=== PATIENT | male | born 2005 | race Caucasian/White ===

== ENCOUNTER 2024-07-22 20:08 | Emergency (ER) | payer OTHER, SELFPAY ==
[2024-07-22 20:10] VITALS: BP 167/80; PULSE 112; RESP 16; TEMP 36.6; O2SAT 99
--- OUTSIDE RECORDS SUMMARY | 2024-07-22 20:10 | XMS_ITS | Referral Summary ---
Author Organization [facility] [address] Address [address] [place] [id number] Care Team Providers Care Diesel Pile Hammer Operator Name Role Phone Yesi Elise NP Primary Care Provider [phone] Allergies No known active allergies Medications naproxen (NAPROSYN) 500 mg tablet Take 1 tablet (500 mg total) by mouth 2 (two) times a day as needed for pain (pain) 60 tablet 4 Active NOT IN DATABASE, PRESCRIPTION, Compounded Fissure Cream: Lidocaine 2% cream mixed with 0.4% Nitroglycerin- Applied as 1 inch to rectum daily for 4 weeks. 1 each 1 4 Active Additional Information Patient not taking.Reported on 12/05/2023 Active Problems Problem Noted Date Diagnosed Date Chronic adenotonsillitis 08/09/2023 Assessment & Plan (12/05/2023 4:18 PM CDT): New referral placed to ENT, he needs sleep study so he can get tonsils/adenoids removed per insurance. Assessment & Plan (08/09/2023 10:38 AM CDT): Plan tonsillectomy and adenoidectomy. - Discussed risks, benefits, and alternatives. Reviewed risks, including anesthesia, pain, bleeding, injury to lips, teeth, gums and tongue, dehydration, scarring, velopharyngeal insufficiency, voice changes, regrowth of tissue. - Reviewed postoperative care: 1-2 weeks off school/daycare, and 2 weeks of light activity and soft diet, with emphasis on fluid hydration, red or purple coloring, straws and dairy are fine to drink. - informational paperwork, including description of surgery, risks, and postop care provided All questions were answered and they would like to proceed. Adenotonsillar hypertrophy 08/09/2023 Assessment & Plan (12/05/2023 4:18 PM CDT): New referral placed to ENT, he needs sleep study so he can get tonsils/adenoids removed per insurance. Assessment & Plan (08/09/2023 10:38 AM CDT): Plan tonsillectomy and adenoidectomy. - Discussed risks, benefits, and alternatives. Reviewed risks, including anesthesia, pain, bleeding, injury to lips, teeth, gums and tongue, dehydration, scarring, velopharyngeal insufficiency, voice changes, regrowth of tissue. - Reviewed postoperative care: 1-2 weeks off school/daycare, and 2 weeks of light activity and soft diet, with emphasis on fluid hydration, red or purple coloring, straws and dairy are fine to drink. - informational paperwork, including description of surgery, risks, and postop care provided All questions were answered and they would like to proceed. Blood in stool 07/18/2023 Rectal pain 07/18/2023 Traumatic injury of rectum 07/18/2023 Irregular bowel habits 07/18/2023 Post concussion syndrome 11/02/2022 Assessment & Plan (12/05/2023 4:16 PM CDT): Discussed Neurology, new referral placed again. May be contributing to worsening mood. Assessment & Plan (06/10/2023 2:58 PM UNARMED SECURITY GUARD): Continue with Neurology appointment in July, new referral placed as requested. 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 Denies SI or HI. Patient has tried Sertraline and Lexapro in the past with adverse side effects. He opts not to try medication until he sees Psychiatrist (new referral placed). Does continue with his therapist. Assessment & Plan (11/02/2022 2:34 PM CDT): Taper sertraline down 1/2 tab for a week, then stop (use pill-cutter) Start Lexapro midweek, we might bump it up to 10 mg after 2 weeks if not having effect We will monitor for improvement or worsening Encounter for medical examination to establish c are 08/31/2022 Assessment & Plan (08/31/2022 5:55 PM CDT): A(n) initial well visit to establish care has been performed today. Aguilar Tucker is up to date on screening tests. He is in need of Cholesterol screening. He is up to date on needed preventative vaccinations. We discussed healthy lifestyle habits, educational material has been given. Medications reviewed, changes documented as per the medical record and discussed with patient along with risks vs benefits. Awaiting labs MRI ordered Planning on referral to neuro with concussion syndrome focus Stay on current step for concussion protocol for now May use tylenol PRN for now (tylenol extra-strength is fine) Return in 1 month Immunizations Immunization Administration Dates Next Due DTaP / Hep B / IPV 04/03/2004,02/01/2004, 004 DTaP 5 Pertussis 10/10/2007,03/30/2005 H1N1 Nasal 02/18/2012, 1,03/16/2009,02/16,12/09/2008,02/11/2008 HPV, Quadrivalent 10/12/2019 HPV9 06/29/2019 Hep A, Pediatric 04/17/2006,10/04/2005 Hib (PRP-T) 10/04/2005,02/01/2004,2003 IPV 10/10/2007 Influenza, Quadrivalent, Spl it, Preservative Free, Intramuscular 02/02/2020 Influenza, Trivalent, IM (MDV) 9,02/14/2015,01/25/2014,01/28,05/18/2010,02/18/2007,04/17/2006 ,03/30/2005,05/09/2004,04/03/2004 Influenza, Unspecified 06/10/2023(Deferr ed: Patient Refused),04/15/2022(Deferred: Patient Refused),04/15/2022(Deferred: Patient Refused),04/15/2022(Deferred: Patient Refused),04/15/2021(Deferred: Patient Refused) MMR 10/10/2007,03/30/2005 Meningococcal B, unspecified 10/12/2019,10/15/19 15 Meningococcal MCV4P (Menactra) 10/12/2019,2014 Pneumococcal Conjugate 7-Valent 10/05/19,04/03/2004,02/01/2004,12/01 Tdap 10/14/2014 Varicella 10/10/2007,10/04/2004 Social History Tobacco Use Types Packs/Day Years Used Date Smoking Tobacco: Former Cigarettes 1 1.2 S tarted: 05/27/2023 Vaping Passive Smoke Exposure: Past Smokeless Tobacco: Never Tobacco Cessation:Counseling Given: Not Answered AUDIT-C Answer Date Recorded Q1: How often do you have a drink containing alcohol? Never 09/05/2023 Q2: How many drinks containi ng alcohol do you have on a typical day when you are drinking? Patient does not drink Frequency of Binge Drinking Not on file 08/14 PHQ-2 Answer Date Recorded PHQ-2 Total Score (If total score is 3 or more points, staff should administer the PHQ-9) 6 12/05/2023 PHQ-9 Answer Date Recorded PHQ-9 Total Score 22 12/05/2023 Personal Safety Answer Date Recorded Have you ever been in or are you currently in a harmful physical or emotional relationship or is someone making you feel afraid or unsafe? Denies 08/22/2023 Sex and Gender Information Value Date Recorded Sex Assigned at Not on file Legal Sex Male 10:31 AM CDT Gender Identity Male 08/30/2022 9:12 AM CDT Sexual Orientation Not on file Last Filed Vital Signs Vital Sign Reading Time Taken Comments Blood Pressure 120/65 12/24/2023 4:21 PM CDT Pulse 80 12/24/2023 4:21 PM CDT Temperature 36.8 C (98.3 F) 12/24/2023 4:21 PM CDT Respiratory Rate 20 12/24/2023 4:21 PM CDT Oxygen Saturation 99% 12/24/2023 4:21 PM CDT Inhaled Oxygen Concentration - - Weight 81.2 kg (179 lb) 12/24/2023 4:21 PM CDT Height 180.3 cm (5' 11 ) 12/24/2023 4:21 PM CDT Body Mass Index 24.97 12/24/2023 4:21 PM CDT Plan of Treatment Not on file Insurance [facility] CLAIMS [facility] CLAIMS [address] [id number] Advance Directives For more information, please contact: [phone] * Full Code (Latest Code Status on File) Date Activated Date Inactivated Comments 08/22/2023 8:42 AM 08/22/2023 2:42 PM * Full Code Date Activated Date Inactivated Comments 08/22/2023 8:42 AM 08/22/2023 8:42 AM Care Teams Diesel Pile Hammer Operator Relationship Specialty Start Date End Date Yesi Elise NP [address] [address] PCP - General Family Medicine 06/10/23
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
--- OUTSIDE RECORDS SUMMARY | 2024-07-22 20:10 | XMS_ITS | Clinical Summary ---
Author Organization [facility] Address [address] [place] [address] Care Team Providers Care Non Licensed Operator Name Role Phone Unavailable Primary Care Provider Unavailabl e Source Comments [facility] [employer],non-owned Affiliates and Associated Physician Practices is amultiple site organization consisting of ambulatory clinics and hospital sitesin [place], [place], [place] and [place]. This disclosure is being madepursuant to the Care Everywhere program and may not contain all information available regarding this patient. Last updated 18.[facility] [employer] Social History Tobacco Use Types Packs/Day Years Used Date Smoking Tobacco: Never Assessed Sex and Gender Information Value Date Recorded Sex Assigned at Not on file Gender Identity Not on file Sexual Orientation Not on file Plan of Treatment Health Maintenance Due Date Last Done Comments HIV SCREENING 09/30/2018 HPV VACCINE (1 - Male 3-dose series) 09/30/2018 MENINGOCOCCAL (Group B) VACC INE SHARED DECISION-MAKING (1 of 2 - Standard) 2019 HEPATITIS C SCREENING 09/26/2021 DTAP/TDAP/TD VACCINES (1 - Tdap) 09/30/2022 HEPATITIS B VACCINE (1 of 3 - 19+ 3-dose series) 09/30/2022 COVID-19 VACCINE (1 - 2023-2 5 season) 2023 DEPRESSION SCREENING 04/15/2024 INFLUENZA VACCINE (Season Ended) 2024 ZOSTER VACCINE (1 of 2) 09/30/2053 HIB VACCINE Aged Out No longer eligi ble based on patient's age to complete this topic MENINGOCOCCAL GROUPS A/C/Y/W VACCINE Aged Out No longer eligible b ased on patient's age to complete this topic PNEUMOCOCCAL VACCINE Aged Out No long er eligible based on patient's age to complete this topic
[2024-07-22 20:46] VITALS: BP 147/84; PULSE 111; RESP 15; O2SAT 97; O2SAT 99
[2024-07-22 20:48] VITALS: PULSE 102
--- NOTE | 2024-07-22 20:49 | ECG_ITS ---
Test Date: 2024-07-22 23:49:40 Measurements Intervals [place] Rate: 87 P: 34 MO: 135 QRS: 83 QRSD: 97 T: 43 QT: 352 QTc: 424 Interpretive Statements SINUS RHYTHM NORMAL ECG No previous ECG available for comparison Electronically Signed On 07-23-2024 05:32:44 CDT by Jackson Borges D.O.
[2024-07-22 21:11] LABS: Basophils Absolute Auto 0.1 K/mm3 (0.0-0.1); Basophils Percent Auto 0.4 % (0.2-1.2); Eosinophils Percent Auto 0.1 % (0-4.4); Hemoglobin 15.8 g/dL (14.0-18.0); Immature Granulocyte Absolute 0.06 K/mm3 (0.00-0.031); Immature Granulocyte Percent A 0.5 % (0-0.5); Lymphocytes Absolute Auto 0.61 K/mm3 (0.9-3.2); Lymphocytes Percent Auto 5.2 % (18.3-44.2); Mean Corpuscular HGB Conc 32.9 g/dl (32-36); Mean Corpuscular Hemoglobin 27.9 pg (26-34); Mean Corpuscular Volume 84.7 fl (80-100); Mean Platelet Volume 9.6 fl (7.4-10.4); Monocytes Absolute Auto 0.4 K/mm3 (0.1-0.6); Monocytes Percent Auto 3.3 % (2.6-8.5); Neutrophils Absolute Auto 10.7 K/mm3 (1.3-6.7); Neutrophils Percent Auto 90.5 % (45.5-73.1); Platelet Count Result 283 k/mm3 (150-375); Red Blood Count 5.67 M/mm3 (4.6-6.20); White Blood Count 11.8 K/mm3 (4.5-10.0)
--- NOTE | 2024-07-22 21:19 | ED.GENADULT ---
HPI - General Adult General Chief complaint: Altered Mental Status Stated complaint: drug use Time Seen by Provider: 07/22/24 20:49 History of Present Illness HPI narrative: Patient is a 18-year-old gentleman who presents emergency department with chief complaint of altered mental status. Patient states that he has been depressed and reports that today he took some mushroom T the patient states he used more mushrooms that he has used in the past and reports that he had an out of body experience the patient states he still feels strange at this time the patient denies suicidal or homicidal ideation Related Data Home Medications ?Medication ?Instructions ?Recorded ?Confirmed ?Last Taken ?Type ibuprofen 200 mg tablet 200 mg PO Q6H PRN 07/26/20 08/09/20 Unknown History Allergies Allergy/AdvReac Type Severity Reaction Status Date / Time No Known Allergies Allergy Verified 07/22/24 20:10 Review of Systems Review of Systems: A 10 system review of systems was completed on the patient and is negative except for what is stated in the HPI. Nursing and ancillary documentation was reviewed. [facility] Past Medical History Medical History Moderate right ankle sprain Social History Social History Alcohol intake: never Substance use: unknown Living arrangements: with family Occupation/Education: student Gender identity (if verbalized by the patient): Male Exam Narrative: GENERAL: Well-appearing, well-nourished, and in no acute distress. HEAD: Normocephalic, atraumatic. EYES: PERRLA and EOMI. ENT: Nares clear, no rhinorrhea or epistaxis. Mucous membranes moist. NECK: Supple. CHEST: Clear to auscultation. No respiratory distress. HEART: Regular rate and rhythm. No murmur heard. Normal peripheral pulses. ABDOMEN: Soft, nontender, nondistended, normal active bowel sounds. EXTREMITIES: Normal range of motion. No edema. SKIN: Warm, dry, no rash. NEURO: No focal deficits. Alert and oriented x3. PSYCH: Normal mood and affect. Course Vital Signs Vital signs: Vital Signs Temperature 36.6 C 07/22/24 20:10 Pulse Rate 112 H 07/22/24 20:10 Respiratory Rate 16 07/22/24 20:10 Blood Pressure 167/80 H 07/22/24 20:10 Pulse Oximetry 99 07/22/24 20:10 Oxygen Delivery Room Air 07/22/24 20:10 Temperature 36.6 C 07/22/24 20:10 Pulse Rate 102 H 07/22/24 20:48 Respiratory Rate 15 07/22/24 20:46 Blood Pressure 147/84 H 07/22/24 20:46 Pulse Oximetry 99 07/22/24 20:46 Oxygen Delivery Room Air 07/22/24 20:46 Medical Decision Making MDM Narrative Medical decision making narrative: Patient is medically cleared for psychiatric evaluation referral transferred admission Differential diagnosis includes depression, substance induced mood disorder, drug abuse The patient is currently not suicidal or homicidal After medical clearance patient case was discussed with mental health screen years who given the patient is not suicidal or homicidal recommended outpatient resources for follow-up Vital Signs Vital Signs: Vital Signs Temperature 36.6 C 07/22/24 20:10 Pulse Rate 112 H 07/22/24 20:10 Respiratory Rate 16 07/22/24 20:10 Blood Pressure 167/80 H 07/22/24 20:10 Pulse Oximetry 99 07/22/24 20:10 Oxygen Delivery Room Air 07/22/24 20:10 Temperature 36.6 C 07/22/24 20:10 Pulse Rate 102 H 07/22/24 20:48 Respiratory Rate 15 07/22/24 20:46 Blood Pressure 147/84 H 07/22/24 20:46 Pulse Oximetry 99 07/22/24 20:46 Oxygen Delivery Room Air 07/22/24 20:46 Lab Data 07/22/24 20:57 07/22/24 20:57 Labs: Lab Results 07/22/24 07/22/24 07/22/24 Range/Units 20:57 21:15 21:59 WBC 11.8 H (4.5-10.0) K/mm3 RBC 5.67 (4.6-6.20) M/mm3 Hgb 15.8 (14.0-18.0) g/dL Hct 48.0 (42.0-52.0) % MCV 84.7 (80-100) fl MCH 27.9 (26-34) pg MCHC 32.9 (32-36) g/dl RDW 13.0 (11.5-14.5) % Plt Count 283 (150-375) k/mm3 MPV 9.6 (7.4-10.4) fl Immature Gran % (Auto) 0.5 (0-0.5) % Neut % (Auto) 90.5 H (45.5-73.1) % Lymph % (Auto) 5.2 L (18.3-44.2) % [place] % (Auto) 3.3 (2.6-8.5) % Eos % (Auto) 0.1 (0-4.4) % Baso % (Auto) 0.4 (0.2-1.2) % Lymph # (Auto) 0.61 L (0.9-3.2) K/mm3 [place] # (Auto) 0.4 (0.1-0.6) K/mm3 Eos # (Auto) 0.0 (0-0.3) K/mm3 Baso # (Auto) 0.1 (0.0-0.1) K/mm3 Abs Immat Gran (auto) 0.06 H (0.00-0.031) K/mm3 Absolute Neuts (auto) 10.7 H (1.3-6.7) K/mm3 Absolute Nucleated RBC 0.000 (0.0-0.012) K/mm3 Nucleated RBC % 0.0 (0.0-0.2) % PT 14.2 (11.1-14.7) Seconds INR 1.1 APTT 29.5 (22.3-36.8) Seconds Sodium 138 (137-145) mmol/L Potassium 3.9 (3.4-5.0) mmol/L Chloride 101 (98-107) mmol/L Carbon Dioxide 20 L (22-30) mmol/L Anion Gap 17 H (4-12) mmol/L BUN 12 (9-20) mg/dL Creatinine 0.88 (0.7-1.3) mg/dL Estim Creat Clear Calc 121 ml/min Estimated GFR > 60 (59 - ) Glucose 122 H (65-110) mg/dL Calcium 9.6 (8.4-10.2) mg/dL Total Bilirubin 0.8 (0.2-1.3) mg/dL AST 31 (17-59) U/L ALT 24 (6-50) U/L Alkaline Phosphatase 64 (38-126) U/L Total Protein 9.0 H (6.3-8.2) g/dL Albumin 5.4 H (3.5-5.1) g/dL TSH 0.302 L (0.465-4.680) uIU/mL Urine Color Dark yellow (Yellow) Urine Appearance Clear (Clear) Urine pH 5.5 (5.0-9.0) Ur Specific [place] 1.040 H (1.001-1.035) Urine Protein 1+ H (Negative) mg/dL Urine Glucose (UA) Negative (Negative) mg/dL Urine Ketones 3+ H (Negative) mg/dL Ur Blood (Man) Negative (Negative) Urine Nitrate Negative (Negative) Urine Bilirubin Negative (Negative) Urine Urobilinogen 1.0 (<2.0) mg/dL Leukocyte Esterase Rfl Negative (Negative) FADI/UL Urine RBC 0-2 (0-2) /hpf Urine WBC 0-5 (0-3) /hpf Ur Squamous Epith Cells None seen (Few) /hpf Urine Bacteria None seen /hpf Urine Casts 0-2 Salicylates < 1.0 L (2-20) mg/dL Urine Opiates Screen Negative (Negative) Urine Methadone Screen Negative (Negative) Acetaminophen < 10 L (10-30) ug/mL Ur Barbiturates Screen Negative (Negative) Ur Phencyclidine Scrn Negative (Negative) Ur Amphetamine Screen Negative (Negative) U Benzodiazepines Scrn Negative (Negative) Urine Cocaine Screen Negative (Negative) U Cannabinoids Screen Positive A (Negative) Ethyl Alcohol < 10 (<10) mg/dL Influenza A (RT-PCR) Negative (Negative) Influenza B (RT-PCR) Negative (Negative) RSV (RT-PCR) Negative (Negative) SARS-CoV-2 RNA (RT-PCR) Negative (Negative) Discharge Plan Discharge Clinical Impression: Active substance abuse, Depression Patient Disposition: Home Condition: Stable Instructions: Antibiotic Form, Depression (ED), Polysubstance Use Disorder (ED) Additional Instructions: If you develop thoughts of hurting herself or hurting others please return to the emergency department for re-evaluation. Please avoid use of marijuana or other intoxicating substances Patient Language: Mohawk Prescriptions: No Action ibuprofen 200 mg tablet 200 mg PO Q6H PRN Follow-up/Referrals: [facility] [Outside] Rick Kelly MD [Physician] - UNKNOWN,DOCTOR [Primary Care Provider] - Time of Disposition: 01:02
--- OUTSIDE RECORDS SUMMARY | 2024-07-22 21:19 | XMS_ITS | Referral Summary ---
Author Organization [facility] [address] Address [address] [place] [phone] Care Team Providers Care Rivet Driver Name Role Phone Yesi Elise NP Primary Care Provider [phone] Allergies No known active allergies Medications naproxen [...] mood. Assessment & Plan (06/10/2023 2:58 PM SALES SUPPORT ADMINISTRATOR): Continue with Neurology appointment in July, new [...] Plan of Treatment Not on file Insurance [facility] CLAIMS [facility] CLAIMS [address] [id number] Advance Directives For more information, please contact: [phone] * Full Code (Latest Code Status on File) Date Activated Date Inactivated Comments 08/22/2023 8:42 AM 08/22/2023 2:42 PM * Full Code Date Activated Date Inactivated Comments 08/22/2023 8:42 AM 08/22/2023 8:42 AM Care Teams Rivet Driver Relationship Specialty Start Date End Date Yesi Elise NP [address] [address] PCP - General Family Medicine 06/10/23
--- OUTSIDE RECORDS SUMMARY | 2024-07-22 21:19 | XMS_ITS | Clinical Summary ---
Author Organization [facility] [address] Address [address] [place] [phone] Care Team Providers Care Bottom Cager Name Role Phone Yesi Elise NP Primary Care Provider [phone] Allergies No known active allergies Medications naproxen [...] mood. Assessment & Plan (06/10/2023 2:58 PM SUBSTANCE ADDICTION COORDINATOR): Continue with Neurology appointment in July, new [...] 10/14 Meningococcal Vaccine Completed 10/12/2019, 015 Insurance [facility] CLAIMS [facility] CLAIMS Advance Directives For more information, please contact: [phone] * Full Code (Latest Code Status on File) Date Activated Date Inactivated Comments 08/22/2023 8:42 AM 08/22/2023 2:42 PM * Full Code Date Activated Date Inactivated Comments 08/22/2023 8:42 AM 08/22/2023 8:42 AM Care Teams Bottom Cager Relationship Specialty Start Date End Date Yesi Elise NP [address] [facility] [address] [place] [address] PCP - General Family Medicine 06/10/23
--- OUTSIDE RECORDS SUMMARY | 2024-07-22 21:19 | XMS_ITS | Clinical Summary ---
Author Organization [facility] Address [address] [place] [address] Care Team Providers Care Thermal Cutter Hand Name Role Phone Unavailable Primary Care Provider Unavailabl e Source Comments [facility] [employer],non-owned Affiliates and Associated Physician Practices is amultiple site organization consisting of ambulatory clinics and hospital sitesin [place], [place], [place] and [place]. This disclosure is being madepursuant to the Care Everywhere program and may not contain all information available regarding this patient. Last updated 18.[facility] [employer] Social History Tobacco Use Types Packs/Day Years [...]
[2024-07-22 21:30] LABS: Alanine Aminotransferase 24 U/L (6-50); Albumin Level 5.4 g/dL (3.5-5.1); Alkaline Phosphatase 64 U/L (38-126); Anion Gap 17 mmol/L (4-12); Aspartate Amino Transferase 31 U/L (17-59); Bilirubin,Total 0.8 mg/dL (0.2-1.3); Blood Urea Nitrogen 12 mg/dL (9-20); Calcium 9.6 mg/dL (8.4-10.2); Carbon Dioxide 20 mmol/L (22-30); Chloride 101 mmol/L (98-107); Estimated CRCL calculation 121 ml/min; Estimated Glomerular Filt Rate > 60; Glucose 122 mg/dL (65-110); Potassium 3.9 mmol/L (3.4-5.0); Sodium 138 mmol/L (137-145)
[2024-07-22 21:47] LABS: Acetaminophen < 10 ug/mL (10-30); Ethanol < 10 mg/dL (<10); Salicylate < 1.0 mg/dL (2-20)
[2024-07-22 21:55] LABS: Influenza A QL RT-PCR Negative (Negative); Influenza B QL RT-PCR Negative (Negative); RSV RNA, RT-PCR Negative (Negative); SARS-CoV-2 RNA PCR Negative (Negative)
[2024-07-22] MEDS: SODIUM CHLORIDE 0.9% IV 1,000 ML 999 ML IV CONT ×2 (21:55→23:34)
[2024-07-22 21:58] LABS: INR 1.1; Prothrombin Time 14.2 Seconds (11.1-14.7)
[2024-07-22 21:59] LABS: Partial Thromboplastin Time 29.5 Seconds (22.3-36.8)
[2024-07-22 22:14] LABS: Add Urine Microscopic? YES; Appearance Urine Clear (Clear); Bacteria Urine None Seen /hpf; Bilirubin Urine Negative (Negative); Blood Urine Negative (Negative); Color Urine Dark Yellow (Yellow); Glucose Urine UA Negative (Negative); Ketones Urine 3+ mg/dL (Negative); Leukocyte Esterase Ur Negative LEU/UL (Negative); Nitrate Urine Negative (Negative); Non Pathogenic Casts 0-2; Protein Urine 1+ mg/dL (Negative); RBC Urine 0-2 /hpf (0-2); Squamous Epithelial Cell Urine None Seen /hpf (Few); WBC Urine 0-5 /hpf (0-3); pH Urine 5.5 (5.0-9.0)
[2024-07-22 22:18] LABS: Thyroid Stimulating Hormone 0.302 uIU/mL (0.465-4.680)
[2024-07-22 22:27] LABS: Barbiturate Screen Urine Negative (Negative); Benzodiazepines Screen Urine Negative (Negative)
[2024-07-22 22:36] LABS: Amphetamine Screen Urine Negative (Negative); Cannabinoid Screen Urine Positive (Negative); Cocaine Screen Urine Negative (Negative); Methadone Screen Urine Negative (Negative); Opiate Screen Urine Negative (Negative); Phencyclidine Screen Urine Negative (Negative)
[2024-07-22 23:43] VITALS: BP 132/81; PULSE 93; RESP 16; O2SAT 99
[2024-07-23 01:30] VITALS: BP 116/64; PULSE 97; RESP 17; O2SAT 100
== END 2024-07-23 01:32 | disposition home or self-care (01) ==
PROVIDERS: Emergency Provider Emergency Medicine
DX: F16.10 Hallucinogen abuse, uncomplicated (principal); F32.A Depression, unspecified; Z11.52 Encounter for screening for COVID-19; T62.0X1A Toxic effect of ingested mushrooms, accidental (unintentional), initial encounter
CPT/HCPCS: 36415; 80053; 80143; 80179; 80307; 81001; 82077; 84443; 85025; 85610; 85730; 87637; 93005; 96360; 96361; 99284; J7030